=== PATIENT | female | born 1995 | race Caucasian/White ===

== ENCOUNTER 2023-12-30 11:28 | Outpatient (CLI) | payer BC, SELFPAY ==
--- NOTE | ~2023-12-30 | US_ITS ---
EXAMINATION: US OB <=14 wk fetus w TV DATE: 12/30/2023 13:19 INDICATION: Establish dating of during first trimester TECHNIQUE: Real-time pelvic ultrasound utilizing both a transvaginal and transabdominal probe was pe rformed. The interpreting radiologist was not present for the study. COMPARISON: None. FINDINGS: The uterus measures 9.3 x 7.9 x 4.0 cm. There is an intrauterine gestational sac.A yolk sac but no d efinitive pole identified. The mean sac diameter measures 1.1 cm, which correlates with an crystal mated gestational age of 5 weeks and 6 days. 1.8 x 1.0 x 0.8 cm hypoechoic subchorionic hematoma john g the right side of the gestational sac. There is suggestion of possible septate versus bicornuate ut erus. The right ovary measures 2.3 x 1.8 x 0.9 cm. The left ovary measures 3.5 x 2.4 x 1.5 cm. Best periphe ral and color Doppler at both ovaries. There is a minimal amount of anechoic free fluid in the pelvis . IMPRESSION: 1. Single intrauterine gestational sac with yolk sac but no visible pole yet apparent most like ly due to early stage of although differential includes failed . Recommend correla tion with serial beta-hCG levels and repeat imaging as clinically indicated. 2. Gestational age by ultrasound based upon 1.1 cm mean sac diameter of 5 weeks 6 day(s) +/- 4 day(s ) with ultrasound estimated date of delivery ([facility]) of 08/25/2024. 3. 1.8 x 1.1 x 0.8 cm subchorionic hematoma along the right side of the gestational sac. 4. Suggestion of possible arcuate, septate versus bicornuate uterus. Reviewed, dictated and finalized at location B. IMPRESSION: 1. Single intrauterine gestational sac with yolk sac but no visible pole yet apparent most likely due to early stage of although differential includes failed . Recommend correlation with serial beta-hCG levels an d repeat imaging as clinically indicated. 2. Gestational age by ultrasound based upon 1.1 cm mean sac diameter of 5 week s 6 day(s) +/- 4 day(s) with ultrasound estimated date of delivery ([facility]) of 08/01. 3. 1.8 x 1.1 x 0.8 cm subchorionic hematoma along the right side of the gestati onal sac. 4. Suggestion of possible arcuate, septate versus bicornuate uterus.
== END 2023-12-30 11:29 ==
PROVIDERS: PCP Obstetrics & Gynecology; Visit Provider Obstetrics & Gynecology
DX: N94.89 Other specified conditions associated with female genital organs and menstrual cycle (principal)
CPT/HCPCS: 76801; 76817

== ENCOUNTER 2023-12-31 14:52 | Outpatient (CLI) | payer BC, SELFPAY | END 2023-12-31 14:53 | disposition home or self-care (01) | LOC: ANHGOSHLAB 14:53 | PROVIDERS: PCP Obstetrics & Gynecology; Visit Provider Obstetrics & Gynecology | DX: N91.2 Amenorrhea, unspecified (principal) | CPT/HCPCS: 36415; 84702 ==

== ENCOUNTER 2024-01-06 10:19 | Outpatient (CLI) | payer BC, SELFPAY ==
--- NOTE | ~2024-01-06 | US_ITS ---
Pelvic ultrasound. Clinical History: Amenorrhea, first trimester COMPARISON: 12/30/2023 Technique: Realtime transabdominal and transvaginal scanning of the pelvis was performed. Color flow Doppler and Doppler spectral analysis were performed. Findings: The uterus is anteverted, and contains an intrauterine gestation average sac diameter 1.9 c m corresponds to an estimated gestational age of 6 weeks 6 days. Yolk sac present without definite fe latosha pole.. The right ovary measures 1.7 x 1.8 x 1.6 cm. No significant right ovarian or adnexal mass is seen. The left ovary measures 3.7 x 1.8 x 2.1 cm. No significant left ovarian or adnexal mass is seen. There is no evidence of free fluid in the cul de sac. Impression: Intrauterine gestational sac, with estimated gestational age of 6 weeks 6 days by average sac diamete r, but with only yolk sac present and no visible pole. This could or focal blighted ovum/missed . Early normal not completely excluded, though felt to be less likely given absenc e of visible pole. Reviewed, dictated and finalized at location M. Impression: Intrauterine gestational sac, with estimated gestational age of 6 weeks 6 days by average sac diameter, but with only yolk sac present and no visible po le. This could or focal blighted ovum/missed . Early normal n ot completely excluded, though felt to be less likely given absence of visible pole.
== END 2024-01-06 10:20 ==
PROVIDERS: PCP Obstetrics & Gynecology; Visit Provider Obstetrics & Gynecology
DX: N91.2 Amenorrhea, unspecified (principal); Z3A.01 Less than 8 weeks gestation of pregnancy
CPT/HCPCS: 76801; 76817

== ENCOUNTER 2024-01-06 10:39 | Outpatient (CLI) | payer BC, SELFPAY ==
[2024-01-06 13:05] LABS: Basophils Absolute Auto 0.1 K/mm3 (0.0-0.1); Basophils Percent Auto 0.7 % (0.2-1.2); Eosinophils Absolute Auto 0.1 K/mm3 (0-0.3); Eosinophils Percent Auto 1.1 % (0-4.4); Hematocrit 43.2 % (37.0-47.0); Hemoglobin 14.5 g/dL (12.0-15.0); Immature Granulocyte Absolute 0.05 K/mm3 (0.00-0.031); Immature Granulocyte Percent A 0.6 % (0-0.5); Lymphocytes Absolute Auto 2.16 K/mm3 (0.9-3.2); Lymphocytes Percent Auto 24.2 % (18.3-44.2); Mean Corpuscular HGB Conc 33.6 g/dl (32-36); Mean Corpuscular Hemoglobin 28.8 pg (26-34); Mean Corpuscular Volume 85.7 fl (80-100); Mean Platelet Volume 12.6 fl (7.4-10.4); Monocytes Absolute Auto 0.7 K/mm3 (0.1-0.6); Monocytes Percent Auto 7.8 % (2.6-8.5); Neutrophils Absolute Auto 5.9 K/mm3 (1.3-6.7); Neutrophils Percent Auto 65.6 % (45.5-73.1); Platelet Count Result 326 k/mm3 (150-375); Red Blood Count 5.04 M/mm3 (4.2-5.4); Red Cell Distribution Width 13.9 % (11.5-14.5); White Blood Count 8.9 K/mm3 (4.5-10.0)
[2024-01-06 13:49] LABS: HIV 1/2 Ab P24 Ag Result Negative (Negative)
[2024-01-06 14:21] LABS: Hepatitis B Surface Antigen Negative (Negative); Rubella IgG Antibody 28.4 IU/ML
[2024-01-06 14:31] LABS: Rapid Plasma Reagin Non-Reactive (NonReactive)
== END 2024-01-06 10:40 | disposition home or self-care (01) ==
PROVIDERS: PCP Obstetrics & Gynecology; Visit Provider Obstetrics & Gynecology
DX: N91.2 Amenorrhea, unspecified (principal)
CPT/HCPCS: 36415; 85025; 86592; 86644; 86703; 86747; 86762; 86787; 86850; 86900; 86901; 87086; 87088; 87340; G0432

== ENCOUNTER 2024-01-07 16:02 | Outpatient (CLI) | payer BC, SELFPAY | END 2024-01-07 16:03 | disposition home or self-care (01) | LOC: ANHGOSHLAB 16:03 | PROVIDERS: PCP Obstetrics & Gynecology; Visit Provider Obstetrics & Gynecology | DX: N91.2 Amenorrhea, unspecified (principal); O20.0 Threatened abortion; Z3A.00 Weeks of gestation of pregnancy not specified | CPT/HCPCS: 36415; 84702 ==

== ENCOUNTER 2024-01-16 12:45 | Outpatient (CLI) | payer BC, SELFPAY ==
--- NOTE | ~2024-01-16 | US_ITS ---
EXAMINATION: US OB <=14 wk fetus w TV DATE: 01/16/2024 13:19 INDICATION: Evaluate viability. TECHNIQUE: Real-time transabdominal and transvaginal obstetric ultrasound. FINDINGS: Ultrasound dated 01/06/2024 The uterus measures 9.9 x 7.5 x 4 cm. There is an intrauterine gestational sac, with pole ident ified. The crown rump length measures 0.38 cm, which correlates with a estimated gestational age of 6 weeks 0 days. No heart motions detected. Large subchorionic hemorrhage measuring 3.2 x 2.1 x 1.3 cm. The ovaries within normal limits. IMPRESSION: 1. Intrauterine gestational sac or containing a crown-rump length corresponding to 6 week 0 day gesta tion. No heart motions detected. Large subchorionic hemorrhage. Findings suspicious for failed with demise versus early IUP. Recommend follow-up with serial quantitative beta-hCG l evels and ultrasound as clinically warranted. Reviewed, dictated and finalized at location B. IMPRESSION: 1. Intrauterine gestational sac or containing a crown-rump length corresponding to 6 week 0 day gestation. No heart motions detected. Large subchorionic hemorrhage. Findings suspicious for failed with demise versus early IUP. Recommend follow-up with serial quantitative beta-hCG levels and ult rasound as clinically warranted.
== END 2024-01-16 12:46 ==
LOC: GOSHIMG 12:46
PROVIDERS: PCP Obstetrics & Gynecology; Visit Provider Obstetrics & Gynecology
DX: O36.80X0 Pregnancy with inconclusive fetal viability, not applicable or unspecified (principal); Z3A.00 Weeks of gestation of pregnancy not specified
CPT/HCPCS: 76801; 76817

== ENCOUNTER 2024-01-30 14:50 | Outpatient (CLI) | payer BC, SELFPAY ==
--- NOTE | ~2024-01-30 | US_ITS ---
EXAMINATION: US OB <=14 wk fetus w TV DATE: 01/30/2024 15:14 INDICATION: Missed during first trimester TECHNIQUE: Real-time pelvic ultrasound utilizing both a transvaginal and transabdominal probe was pe rformed. The interpreting radiologist was not present for the study. COMPARISON: None. FINDINGS: The uterus measures 8.1 x 7.2 x 4.4 cm. Endometrial complex measures 1.3 cm thickness. The previousl y seen gestational sac is no longer visualized. There is anechoic fluid along the peripheral margins of a 3.6 x 3.0 x 0.9 cm echogenic structure within the endometrial canal with small amount of interna l vascular flow on color Doppler suggesting retained products of conception. The right ovary measures 2.2 x 2.0 x 1.7 cm. The left ovary measures 2.4 x 1.8 x 1.3 cm. Vascular tomer w is identified on both ovaries on color Doppler. There is no free fluid in the pelvis. IMPRESSION: 1. Prior gestational sac no longer visualized with nonloculated anechoic fluid within the endometrial canal surrounding a 2.6 x 3.0 x 0.9 cm vascular soft tissue structure. Findings would be consistent with provided history of missed with retained products of conception. Reviewed, dictated and finalized at location A. IMPRESSION: 1. Prior gestational sac no longer visualized with nonloculated anechoic fluid within the endometrial canal surrounding a 2.6 x 3.0 x 0.9 cm vascular soft tis mike structure. Findings would be consistent with provided history of missed abo rtion with retained products of conception.
== END 2024-01-30 14:51 ==
LOC: GOSHIMG 14:50
PROVIDERS: PCP Obstetrics & Gynecology; Visit Provider Obstetrics & Gynecology
DX: O02.1 Missed abortion (principal)
CPT/HCPCS: 76801; 76817

== ENCOUNTER 2024-02-02 13:48 | Outpatient (CLI) | payer BC, SELFPAY ==
--- NOTE | ~2024-02-02 | US_ITS ---
US OB <=14 wk fetus w TV Ordering provider: Jose M Brothers MD History: . O02.1 - Missed . Comparison: None. Technique: Transabdominal and endovaginal ultrasound of the pelvis (Doppler ultrasound interrogation techniques used as needed for this exam.) FINDINGS: CERVIX: Normal. UTERUS: Measures 8.1x 7.3x 3.5 cm in length which is within normal limits and is anteverted. No myom etrial masses. ENDOMETRIUM: thickness measuring 12 mm. Color flow is seen in the endometrium which may indicate fidel ined products. Follow-up advised. No endometrial cysts or fluid. CUL DE SAC: Trace of free fluid. RIGHT OVARY: Normal in size measuring 2.5x 2.2x 1.2 cm. Normal echotexture. Doppler vascular flow pre sent. LEFT OVARY: Normal in size measuring 3.7x 1.9x 1.6 cm. Normal echotexture. Doppler vascular flow pres ent. ADNEXA: Normal. No mass. IMPRESSION: Slightly thickened endometrium with color flow. Possibility of retained products cannot be excluded. Follow-up advised. Otherwise, normal pelvic ultrasound. Reviewed, dictated and finalized at location A. IMPRESSION: Slightly thickened endometrium with color flow. Possibility of retained product s cannot be excluded. Follow-up advised. Otherwise, normal pelvic ultrasound.
== END 2024-02-02 13:49 ==
LOC: GOSHIMG 13:49
PROVIDERS: PCP Obstetrics & Gynecology; Visit Provider Obstetrics & Gynecology
DX: O02.1 Missed abortion (principal); Z3A.00 Weeks of gestation of pregnancy not specified
CPT/HCPCS: 76801; 76817

== ENCOUNTER 2024-02-04 02:04 | Day surgery (SDC) | payer BC, SELFPAY ==
[2024-02-03 08:29] VITALS: BMI 23.6
--- NOTE | 2024-02-03 08:34 | PC.NURSE ---
Report to the Outpatient Waiting Room, entrance under the green pavilion located off [facility], at time _0600_ on date _[id number]_. Planned Procedure Time: _07300_. Time changes happen often and if your time is changed the preop area will call you the afternoon before. - You and your visitor will be asked to self-screen and do not enter if you have any COVID symptoms. - A mask is optional within the hospital at this time. Patients may have clear liquids (water, carbonated beverages, clear teas, apple juice) until 3 hours prior to surgery with a maximum of 20 ounces. - No food from midnight until time of surgery Take the following medications with a SIP of water the morning of surgery: ___None DO NOT STOP ANY OF YOUR OTHER PRESCRIPTION MEDICATIONS PRIOR TO SURGERY ?EXCEPT THE FOLLOWING Medications to discontinue per physician None Date to take last dose Please no make-up, nail danish, hairspray, perfume, deodorant, or body powder the day of surgery. No jewelry (including any body piercings) or valuables the day of surgery, leave them at home. Please take a shower or bath the night before, or the morning of, surgery with an antibacterial soap. Wear comfortable, loose fitting clothing. - Jewelry must be removed prior to entering the operating room. Rings and piercings that are not removed may be cut off. - The hospital will not accept responsibility for valuables. - Please leave all valuables, including medications, at home the day of surgery. If you are going home after surgery, a licensed transfer driver must drive you home. - NO public transportation without another adult if you receive anesthesia. - We recommend that an adult stay with you for 24 hours following discharge. - We also recommend that you do not drive, make important decision, drink alcoholic beverages, or take any drugs that were not prescribed by your health care provider for at least 24 hours after your discharge time. Follow any additional instructions given to you from your surgeon. If you or anyone in your household have experienced Covid symptoms in the past week, please notify your surgeon or the nurse liaison at the phone number below for possible testing. Telephone instructions given to ___Cassidy___and asked if any additional questions and then verbalized understanding. Patient advised to call surgeon office or pre surgery nurse liaison [phone] if any additional questions.
--- NOTE | 2024-02-03 17:17 | P.HP_ITS ---
H&P: HPI History of Present Illness Date/Time: 02/03/24 17:17 28-year-old 2 para 1 001 female at 8 weeks gestation by last menstrual period, was found to have missed and underwent medical curettage. Did pass a large amount of tissue and bleeding, ultrasound after revealed a large amount of retained products of conception. Did have some further bleeding at which point last tissue was noted but ultrasound still consistent with retained products of conception. She has not had a lot of bleeding and pain since her last episode, presents for suction curettage to remove her removed the rest of the retained products. Chief Complaint: Retained products of conception Review of Systems Review of Systems: All systems reviewed & are unremarkable except as noted in HPI and below PMFSH Past Medical History Medical History Amenorrhea Amenorrhea Examination to determine viability of Social History Social History Smoking status: Never smoker Alcohol intake: current Substance use: never Do You Feel Safe in your Home?: Yes Lack of Transportation: No Lack of Food: Never True Current Housing: I Have Housing Concerned About Future Housing: No Difficulty Paying Gas/Electric Bills: No Difficulty Paying for Meds: No Currently Unemployed: No Education: Bachelor's Degree Difficulty w/ Childcare or Family Care: No Living arrangements: with family Occupation/Education: occupation 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 Gender identity (if verbalized by the patient): Female Sexual Orientation (if Verbalized by the Patient): Straight or Heterosexual Spiritual care concerns: No Meds Home Medications and Allergies Home Medications Medication Instructions Recorded Confirmed Type No Home Medications 02/03/24 02/03/24 History Allergies Allergy/AdvReac Type Severity Reaction Status Date / Time No Known Allergies Allergy Verified 02/03/24 08:28 Exam Const: General: cooperative and healthy appearing Resp: Effort & Inspection: normal respiratory effort Auscultation: clear to auscultation bilaterally Cardio: Rate: regular rate Rhythm: regular rhythm GI: Inspection: normal to inspection Auscultation: normal bowel sounds : External Female Exam: normal external appearance Speculum Exam - Vagina: normal appearance of the vagina Speculum Exam - Cervix: normal appearance of the cervix Bimanual exam- vagina & uterus: enlarged ( 6-8 week size) Bimanual Exam- Adnexa, other: normal adnexae Assessment and Plan Assessment and plan (1) Retained products of conception after miscarriage: Code(s): O03.4 - Incomplete spontaneous without complication Status: Acute Assessment and Plan: proceed with suction curettage
[2024-02-04 06:30] VITALS: BP 129/83; PULSE 82; RESP 14; TEMP 37.3; O2SAT 99
[2024-02-04] MEDS: LACTATED RINGERS 1,000 ML 30 ML IV CONT (06:30)
[2024-02-04] MEDS: ACETAMINOPHEN 500 MG TABLET 1000 MG PO (06:30)
--- NOTE | 2024-02-04 07:12 | P.PNAN_ITS ---
Anes - Initial Pre Proc Eval Procedure: Operation Date: 02/04/24 07:30 Proposed Procedures p Suction Dilatation and Curettage - Jose M Brothers MD Date/Time: 02/04/24 07:12 Surgeon: Jose M Brothers MD Pre Op Diagnosis: missed AB Patient Data Age: 28 Gender: F Height: 1.65 m Weight: 64.5 kg Allergies Allergy/AdvReac Type Severity Reaction Status Date / Time No Known Allergies Allergy Verified 02/03/24 08:28 Home Medications Medication Instructions Recorded Confirmed Type No Home Medications 02/03/24 02/03/24 History Patient hx anesthesia problems: none Family hx anesthesia problems: none Results Review: All pre-operative results and documents have been reviewed as part of the pre- operative evaluation. [facility]LY [facility] Past Medical History Medical History Amenorrhea Amenorrhea Examination to determine viability of Social History Social History Smoking status: Never smoker Alcohol intake: current Substance use: never Do You Feel Safe in your Home?: Yes Lack of Transportation: No Lack of Food: Never True Current Housing: I Have Housing Concerned About Future Housing: No Difficulty Paying Gas/Electric Bills: No Difficulty Paying for Meds: No Currently Unemployed: No Education: Bachelor's Degree Difficulty w/ Childcare or Family Care: No Living arrangements: with family Occupation/Education: occupation 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 Gender identity (if verbalized by the patient): Female Sexual Orientation (if Verbalized by the Patient): Straight or Heterosexual Spiritual care concerns: No Anes - Eval Final PreProcedure Day of Procedure 02/04/24 07:12 Patient weight: normal Heart: regular rate and rhythm Lungs: clear to auscultation Airway: Mallampati scale class II Neurological: alert and oriented Last oral intake: >/= 8 hours ASA classification: II Emergent: no Anesthetic plan: proceed Anesthesia type and monitoring: general GIVS and standard monitoring Results Review: All pre-operative results and documents have been reviewed as part of the pre- operative evaluation. Informed Consent: The patient's anesthetic plan and its attendant risks and benefits were discussed with the patient/family/POA. Questions were solicited and answers provided to the satisfaction of the patient/family/POA.
--- NOTE | 2024-02-04 07:17 | WPDHPUPDATE1 ---
History and Physical Update Update Date/Time: 02/04/24 07:17 History and Physical has been reviewed, including an updated exam of the patient. There are NO changes in the patient's condition. Risks, benefits, and alternatives have been discussed and questions answered. Patient agrees to proceed with procedure.
--- NOTE | 2024-02-04 07:51 | W.PM.PROC2 ---
Procedure Note - Detailed Date of Procedure 02/04/24 Pre-op Diagnosis Retained products of conception after miscarriage Post-op Diagnosis Same Procedure Performed Suction curettage Surgeon Jose M Brothers MD Anesthesia MAC Findings Minimal retained products Description of Procedure Patient prepped and draped in usual manner for this procedure. Cervix was dilated to 0 allow an 8mm suction curette to be placed through the cervix. This was then used to remove a moderate amount of products of conception. Sharp curette throughout with no remaining tissue. Minimal bleeding from tenaculum site, otherwise bleeding. At this point the procedure was considered terminated the patient was sent to the recovery room in stable condition. Estimated Blood Loss 100 Drains No Packing No Pathology Yes Complications No immediate complications Condition Stable Disposition PACU [facility] Billing Surgery - Charge Forward: Surgery Billing
[2024-02-04 07:52] VITALS: BP 106/68; PULSE 91; RESP 16; O2SAT 98
[2024-02-04 08:15] VITALS: BP 106/69; PULSE 83; RESP 14; O2SAT 97
[2024-02-04 08:45] VITALS: BP 104/63; PULSE 87; RESP 14
== END 2024-02-04 08:55 | disposition home or self-care (01) ==
PROVIDERS: PCP Family Medicine Sports Medicine; Visit Provider Obstetrics & Gynecology
PROC: (CPT 59812; principal; 2024-02-04 07:30)
DX: O03.4 Incomplete spontaneous abortion without complication (principal)
CPT/HCPCS: 59812; 88305; A9270; J1100; J1885; J2250; J2405; J2704; J3010; J7120